=== PATIENT | female | born 1995 | race Caucasian/White ===

== ENCOUNTER 2018-02-17 12:30 | Inpatient (IN) | payer OTHER ==
[2018-02-17] MEDS ORDERED: BUTORPHANOL 1 MG INJ IV (13:00)
[2018-02-17] MEDS ORDERED: LIDOCAINE 1% (MPF) 30 ML INJ INJ (13:00)
[2018-02-17] MEDS ORDERED: CARBOPROST 250 MCG INJ IM (13:00)
[2018-02-17] MEDS ORDERED: MISOPROSTOL 200 MCG TAB PR (13:00)
[2018-02-17] MEDS ORDERED: BUTORPHANOL 2 MG INJ IV (13:00)
[2018-02-17] MEDS ORDERED: METHYLERGONOVINE 0.2 MG INJ IM (13:00)
[2018-02-17] MEDS ORDERED: OXYTOCIN 30 UNITS/LR 500 ML IV (13:00)
[2018-02-17 13:52] LABS: ADD MAN DIFF? NO
[2018-02-17 13:54] LABS: WHITE BLOOD COUNT 8.8 10^3/ul (4.8-10.8)
[2018-02-17 13:54] LABS: BASOPHILS % 0.2 % (0.0-2.0); EOSINOPHILS % 0.3 % (0.0-7.0); HEMATOCRIT 33.1 % (37.0-47.0); HEMOGLOBIN 10.8 g/dl (12.0-16.0); LYMPHOCYTES # 1.1 10^3/ul (0.8-2.9); LYMPHOCYTES % 11.9 % (15.0-51.0); MEAN CORPUSCULAR HEMOGLOBIN 29.2 pg (29.0-33.0); MEAN CORPUSCULAR HGB CONC 32.6 g/dl (32.0-37.0); MEAN CORPUSCULAR VOLUME 89.5 fl (82.0-101.0); MEAN PLATELET VOLUME 11.7 fl (7.4-10.4); MONOCYTE # 0.7 10^3/ul (0.3-0.9); MONOCYTES % 7.7 % (0.0-11.0); NEUTROPHILS % 79.3 % (39.0-77.0); PLATELET COUNT 201 10^3/UL (140-415); RED CELL DISTRIBUTION WIDTH 13.5 % (11.5-14.5)
[2018-02-17 14:14] LABS: INR 0.93; PROTIME 12.6 Sec (11.9-14.9)
[2018-02-17 14:15] LABS: PARTIAL THROMBOPLASTIN TIME 24.5 Sec (25.0-35.0)
[2018-02-17 14:26] LABS: RUPTURE FETAL MEMBRANES NEGATIVE (NEGATIVE)
[2018-02-17] MEDS: LACTATED RINGER'S 1,000 ML IV* ×3 (15:29→22:44)
[2018-02-17] MEDS: AMPICILLIN 2 GM/NS (PMX) 100 ML IVPB (16:03)
[2018-02-17 16:54] LABS: HEPATITIS B SURFACE ANTIGEN NEGATIVE (NEGATIVE)
[2018-02-17 18:42] LABS: AMPHETAMINE/METHAMPHETAMINE Negative (NEGATIVE); BARBITURATES Negative (NEGATIVE); BENZODIAZEPINES Negative (NEGATIVE); CANNABINOIDS Negative (NEGATIVE); COCAINE Negative (NEGATIVE); OPIATES Negative (NEGATIVE)
[2018-02-17 19:37] LABS: RAPID PLASMA REAGIN NONREACTIVE (NR)
[2018-02-17] MEDS: AMPICILLIN 1 GM/NS (PMX) 50 ML IVPB ×2 (20:20→21:00)
[2018-02-17] MEDS ORDERED: FENTAnyl 2MCG/ML-ROPIV 0.2% 100 ML (22:49)
[2018-02-17] MEDS ORDERED: IBUPROFEN 600 MG TAB PO (23:00)
[2018-02-18] MEDS: AMPICILLIN 1 GM/NS (PMX) 50 ML IVPB (00:09)
[2018-02-18] MEDS: OXYTOCIN 30 UNITS/LR 500 ML IV ×2 (02:54→03:17)
[2018-02-18] MEDS ORDERED: LACTATED RINGER'S 1,000 ML IV* (03:36)
[2018-02-18] MEDS ORDERED: DEXTROSE 5%-LR 1,000 ML IV (03:36)
[2018-02-18] MEDS ORDERED: ZOLPIDEM 5 MG TAB PO (04:00)
[2018-02-18] MEDS ORDERED: MISOPROSTOL 200 MCG TAB PR (04:00)
[2018-02-18] MEDS ORDERED: METHYLERGONOVINE 0.2 MG INJ IM (04:00)
[2018-02-18] MEDS ORDERED: ACETAMINOPHEN 325 MG TAB PO (04:00)
[2018-02-18] MEDS ORDERED: DIBUCAINE 1% 30 GM OINT PR (04:00)
[2018-02-18] MEDS ORDERED: CARBOPROST 250 MCG INJ IM (04:00)
[2018-02-18] MEDS ORDERED: DIPHENHYDRAMINE 50 MG INJ IV (04:00)
[2018-02-18] MEDS ORDERED: ONDANSETRON 4 MG INJ IV (04:00)
[2018-02-18] MEDS ORDERED: OXYTOCIN 30 UNITS/LR 500 ML IV (04:00)
[2018-02-18] MEDS ORDERED: OXYCODONE/ASPIRIN (4.88/325) TAB PO (04:00)
[2018-02-18] MEDS: WITCH HAZEL/GLYCERIN PAD PR (06:06)
[2018-02-18] MEDS: IBUPROFEN 600 MG TAB PO ×3 (06:06→17:42)
[2018-02-18] MEDS: BENZOCAINE 20% 56 ML SPRAY TOP (06:07)
[2018-02-18] MEDS: LANOLIN 7 GM TUBE TOP (06:08)
[2018-02-18] MEDS: SENNA/DOCUSATE NA (8.6MG/50MG) TAB PO (08:33)
[2018-02-19] MEDS: IBUPROFEN 600 MG TAB PO ×5 (00:03→23:48)
[2018-02-19 07:20] LABS: ADD MAN DIFF? NO
[2018-02-19 07:23] LABS: WHITE BLOOD COUNT 12.5 10^3/ul (4.8-10.8)
[2018-02-19 07:23] LABS: BASOPHILS % 0.2 % (0.0-2.0); EOSINOPHILS # 0.1 10^3/ul (0.0-0.5); EOSINOPHILS % 0.9 % (0.0-7.0); HEMATOCRIT 30.3 % (37.0-47.0); HEMOGLOBIN 9.7 g/dl (12.0-16.0); LYMPHOCYTES # 2.4 10^3/ul (0.8-2.9); LYMPHOCYTES % 19.4 % (15.0-51.0); MEAN CORPUSCULAR VOLUME 90.7 fl (82.0-101.0); MEAN PLATELET VOLUME 11.8 fl (7.4-10.4); MONOCYTES % 7.9 % (0.0-11.0); NEUTROPHIL # 8.9 10^3/ul (1.6-7.5); PLATELET COUNT 175 10^3/UL (140-415); RED BLOOD COUNT 3.34 10^6/ul (4.20-5.40); RED CELL DISTRIBUTION WIDTH 13.9 % (11.5-14.5)
[2018-02-19] MEDS: SENNA/DOCUSATE NA (8.6MG/50MG) TAB PO (08:11)
[2018-02-20] MEDS: IBUPROFEN 600 MG TAB PO ×2 (05:44→11:54)
[2018-02-20] MEDS ORDERED: DIPHTH/TET/ACEL PERTUSS (ADULT) 0.5 ML VIAL IM* (09:00)
[2018-02-20] MEDS ORDERED: MEASLES,MUMPS,RUBELLA VACCINE INJ SC* (09:00)
== END 2018-02-20 13:25 | disposition home or self-care (01) | DRG 775 ==
LOC: OBT 12:30 → PP1 02-18 04:30 → L-D 12:30 → OBT 13:05 → L-D 13:05
PROVIDERS: Obstetrics & Gynecology
PROC: 10E0XZZ Delivery of Products of Conception, External Approach (ICD-10-PCS; principal; 2018-02-18)
PROC: 0KQM0ZZ Repair Perineum Muscle, Open Approach (ICD-10-PCS; 2018-02-18)
DX: O71.4 Obstetric high vaginal laceration alone (principal); Z37.0 Single live birth; Z3A.39 39 weeks gestation of pregnancy
CPT/HCPCS: 62319; 80307; 84112; 85025; 85610; 85730; 86592; 86850; 86900; 86901; 87340